=== PATIENT | male | born 1980 | race Two or more races ===

== ENCOUNTER 2024-05-15 00:57 | Inpatient (IN) | payer OTHER ==
[~2024-05-15] VITALS: Ht 162.6 cm; Wt 77.1 kg
[2024-05-15] MEDS ORDERED: LANTUS SOL100 UNIT/1 (01:14)
--- NOTE | 2024-05-15 01:14 | NUR ---
PACIENTE TRAIDA EN AMBULANCIA TRANSFER DEL [facility] POR FX. DE CADERA IZQUIERDA ACEPTADO POR EL DR. LOYOLA Y DR. SANDERS.
--- NOTE | 2024-05-15 01:14 | NUR ---
CANALIZADA EN EDWIN COSTADO # 18 BAJANDO CON UN [id number] KVO
[2024-05-15] MEDS ORDERED: 0.9 % SODIUM CHLORIDE 1,000 ML IV STA (01:50)
[2024-05-15] MEDS ORDERED: PROMETHAZINE HCL 50 MG/ML AMPUL IM STA (01:51)
[2024-05-15] MEDS ORDERED: MEPERIDINE HCL/PF 50 MG/ML VIAL IM STA (01:51)
[2024-05-15 02:00] LABS: HEMATOCRIT 28.3 % (39.0-48.0); HEMOGLOBIN 10.4 g/dL (13-16.00); MEAN CELL VOLUME 82.6 fL (80.0-100.00); MEAN CORPUSCULAR HEMOGLOBIN 30.3 pg (27.00-32.0); MEAN CORPUSCULAR HGB CONC 36.7 g/dl (32.0-36.0); PLATELET COUNT 162 K/uL (150-450); RED BLOOD COUNT 3.43 M/uL (4.00-6.00); RED CELL DISTRIBUTION WIDTH 12.9 % (11.5-14.5)
--- NOTE | 2024-05-15 02:03 | NUR ---
SE ORIENTA A PACIENTE SOBRE ORDENES MEDICAS, REFIERE ENTENDER. SE COLECTAN MUESTRAS DE LABORATORIO BAJO MEDIDAS ASEPTICAS. SE ADMINISTRAN MEDICAMENTOS SONNY ORDEN MEDICA. SE REALIZA EKG Y SE NOTIFICA X-RAY.
[2024-05-15 02:24] LABS: PARTIAL THROMBOPLASTIN TIME 26.7 SECONDS (22.0-34.0); PROTHROMBIN TIME 10.9 SECONDS (9.0-11.5)
[2024-05-15 02:28] LABS: ALBUMIN 3.4 gm/dL (3.4-5.0); BILIRUBIN TOTAL 0.79 mg/dL (0.3-1.2); CALCIUM 8.4 mg/dL (8.5-10.1); CREATININE SERUM 1.22 mg/dL (0.70-1.30); GFR 65.14; GLOBULINA 3.1 G/DL (2.4-3.5); POTASSIUM 3.94 mEq/L (3.5-5.1); TOTAL PROTEIN 6.5 gm/dL (6.4-8.2)
--- NOTE | 2024-05-15 03:02 | NUR ---
SE COLOCA MCDOWELL CATETHER A PACIENTE BAJO MEDIDAS ESTERIL SE LORRIE U/A.
[2024-05-15 03:39] LABS: URINE APPEARANCE Clear; URINE BACTERIA 7.5 uL (0.0-1933); URINE BILIRRUBIN Negative (NEGATIVE); URINE BLOOD Negative; URINE COLOR Yellow; URINE KETONE Negative (NEGATIVE); URINE LEUKOCYTE Negative; URINE NITRATE Negative; URINE RBC 11.5 uL (0.0-20.8); URINE WBC 4.7 uL (0.0-23.2)
[2024-05-15 04:11] LABS: URINE CAST 0.15 uL (0.0-1.40); URINE EPITHELIAL CELLS 0.3 uL (0.0-38.8); URINE GLUCOSE >=1000 MG/DL (NEGATIVE); URINE PROTEIN 100 (NEGATIVE)
[2024-05-15] MEDS ORDERED: INSULIN LISPRO 1,000 UNIT/10 ML UNITS SUBCUTANEO PRN (07:30)
[2024-05-15] MEDS ORDERED: 0.9 % SODIUM CHLORIDE 1,000 ML IV SCH (07:30)
[2024-05-15] MEDS ORDERED: ONDANSETRON HCL 4 MG in 0.9 % SODIUM CHLORIDE 50 ML IV PRN (07:30)
[2024-05-15] MEDS ORDERED: MORPHINE SULFATE 4 MG/ML CARTRIDGE IV PRN (07:30)
[2024-05-15] MEDS ORDERED: DEXTROSE 50 % IN WATER 0.5 G/ML DISP.SYRIN IV PRN (07:30)
[2024-05-15] MEDS ORDERED: ACETAMINOPHEN 500 MG GEL..CAP PO PRN (07:30)
[2024-05-15 07:48] VITALS: BP 136/82
[2024-05-15 08:40] VITALS: BP 132/78; O2SAT 99
[2024-05-15] MEDS ORDERED: FAMOTIDINE/PF 20 MG in 0.9 % SODIUM CHLORIDE 8 ML IV PUSH SCH (09:00)
[2024-05-15 09:10] LABS: COL EPI 138 SECONDS (82-175)
[2024-05-15 16:59] VITALS: BP 178/91; O2SAT 100
[2024-05-16 00:57] VITALS: BP 157/83; O2SAT 99
[2024-05-16 08:00] VITALS: BP 135/76; O2SAT 98
[2024-05-16] MEDS ORDERED: ENOXAPARIN SODIUM 40 MG/0.4 ML SYRINGE SUBCUTANEO NR (13:45)
[2024-05-16 16:00] VITALS: BP 148/84; O2SAT 99
[2024-05-17 00:06] VITALS: BP 143/77; O2SAT 98
[2024-05-17 00:21] LABS: HEMATOCRIT 27.4 % (39.0-48.0); MEAN CELL VOLUME 83.6 fL (80.0-100.00); MEAN CORPUSCULAR HEMOGLOBIN 30.5 pg (27.00-32.0); MEAN CORPUSCULAR HGB CONC 36.5 g/dl (32.0-36.0); PLATELET COUNT 160 K/uL (150-450); RED BLOOD COUNT 3.28 M/uL (4.00-6.00); RED CELL DISTRIBUTION WIDTH 12.8 % (11.5-14.5)
[2024-05-17 01:05] LABS: CALCIUM 8.5 mg/dL (8.5-10.1); CREATININE SERUM 1.35 mg/dL (0.70-1.30); GFR 57.96; POTASSIUM 4.41 mEq/L (3.5-5.1); TSH 0.465 uIU/mL (0.358-3.74)
[2024-05-17 07:43] LABS: HEMATOCRIT 28.6 % (39.0-48.0); HEMOGLOBIN 10.5 g/dL (13-16.00); MEAN CELL VOLUME 82.8 fL (80.0-100.00); MEAN CORPUSCULAR HEMOGLOBIN 30.3 pg (27.00-32.0); MEAN CORPUSCULAR HGB CONC 36.6 g/dl (32.0-36.0); PLATELET COUNT 154 K/uL (150-450); RED BLOOD COUNT 3.46 M/uL (4.00-6.00)
[2024-05-17 08:00] VITALS: BP 147/87; O2SAT 98
[2024-05-17 08:19] LABS: CALCIUM 8.5 mg/dL (8.5-10.1); CREATININE SERUM 1.15 mg/dL (0.70-1.30); GFR 69.74; POTASSIUM 4.2 mEq/L (3.5-5.1)
[2024-05-17] MEDS ORDERED: ENOXAPARIN SODIUM 40 MG/0.4 ML SYRINGE SUBCUTANEO SCH (09:00)
[2024-05-17 16:00] VITALS: BP 147/81; O2SAT 98
[2024-05-17] MEDS ORDERED: INSULIN GLARGINE,HUM.REC.ANLOG 1,000 UNITS/10 ML UNITS SUBCUTANEO SCH (21:00)
[2024-05-18] VITALS: BP 157/74; O2SAT 100
[2024-05-18 07:02] LABS: HEMATOCRIT 27.8 % (39.0-48.0); HEMOGLOBIN 10.2 g/dL (13-16.00); MEAN CELL VOLUME 82.9 fL (80.0-100.00); MEAN CORPUSCULAR HEMOGLOBIN 30.5 pg (27.00-32.0); MEAN CORPUSCULAR HGB CONC 36.8 g/dl (32.0-36.0); PLATELET COUNT 157 K/uL (150-450); RED BLOOD COUNT 3.36 M/uL (4.00-6.00); RED CELL DISTRIBUTION WIDTH 12.7 % (11.5-14.5)
[2024-05-18] MEDS ORDERED: CEFAZOLIN SODIUM 1,000 MG VIAL IV SCH ×2 (08:00→17:00)
[2024-05-18] MEDS ORDERED: VANCOMYCIN HCL 1,000 MG VIAL IR ONE (12:45)
[2024-05-18] MEDS ORDERED: TRANEXAMIC ACID 100MG/1ML (1000MG) AMPUL IV ONE ×2 (12:45)
[2024-05-18] MEDS ORDERED: TRAMADOL HCL 50 MG TABLET PO PRN (15:30)
[2024-05-18] MEDS ORDERED: MEPERIDINE HCL/PF 50 MG/ML VIAL IM PRN (15:30)
[2024-05-18] MEDS ORDERED: ONDANSETRON HCL 2 MG/ML VIAL IV PRN (15:30)
[2024-05-18] MEDS ORDERED: PROMETHAZINE HCL 50 MG/ML AMPUL IM PRN (15:30)
[2024-05-18] MEDS ORDERED: SODIUM CHLORIDE 0.45 % 1,000 ML IV SCH (15:30)
[2024-05-18] MEDS ORDERED: ONDANSETRON 4 MG TAB.RAPDIS PO PRN (15:30)
[2024-05-18] MEDS ORDERED: MORPHINE SULFATE 4 MG/ML VIAL IV ONE ×2 (15:45→16:15)
[2024-05-18] MEDS ORDERED: ENALAPRILAT DIHYDRATE 1.25 MG/ML VIAL IV ONE (16:45)
[2024-05-18] MEDS ORDERED: PROMETHAZINE HCL 50 MG/ML AMPUL IM ONE (16:45)
[2024-05-18] MEDS ORDERED: MEPERIDINE HCL 50 MG/ML AMPUL IM ONE (16:45)
[2024-05-18] MEDS ORDERED: PANTOPRAZOLE SODIUM 40 MG TABLET.DR PO SCH (17:00)
[2024-05-18 17:34] VITALS: BP 158/69; O2SAT 97
[2024-05-18 17:53] LABS: HEMATOCRIT 26.3 % (39.0-48.0); HEMOGLOBIN 9.5 g/dL (13-16.00); MEAN CELL VOLUME 83.3 fL (80.0-100.00); PLATELET COUNT 153 K/uL (150-450); RED BLOOD COUNT 3.16 M/uL (4.00-6.00); RED CELL DISTRIBUTION WIDTH 12.9 % (11.5-14.5)
[2024-05-19] VITALS: BP 162/84; O2SAT 100
[2024-05-19 08:22] LABS: HEMATOCRIT 24.1 % (39.0-48.0); MEAN CELL VOLUME 83.8 fL (80.0-100.00); MEAN CORPUSCULAR HGB CONC 35.1 g/dl (32.0-36.0); PLATELET COUNT 160 K/uL (150-450); RED BLOOD COUNT 2.88 M/uL (4.00-6.00); RED CELL DISTRIBUTION WIDTH 12.6 % (11.5-14.5)
[2024-05-19 08:24] LABS: HEMOGLOBIN 8.5 g/dL (13-16.00); MEAN CORPUSCULAR HEMOGLOBIN 29.5 pg (27.00-32.0)
[2024-05-19] MEDS ORDERED: RIVAROXABAN 10 MG TAB PO SCH (09:00)
[2024-05-19 10:04] VITALS: BP 114/72; O2SAT 100
[2024-05-19 17:00] VITALS: BP 177/77; O2SAT 100
[2024-05-20] VITALS: BP 110/69; O2SAT 95
[2024-05-20 01:09] LABS: MEAN CELL VOLUME 83.5 fL (80.0-100.00); MEAN CORPUSCULAR HGB CONC 35.8 g/dl (32.0-36.0); PLATELET COUNT 147 K/uL (150-450); RED BLOOD COUNT 2.53 M/uL (4.00-6.00); RED CELL DISTRIBUTION WIDTH 12.9 % (11.5-14.5)
[2024-05-20 01:11] LABS: HEMATOCRIT 21.1 % (39.0-48.0); HEMOGLOBIN 7.6 g/dL (13-16.00)
[2024-05-20 08:24] VITALS: BP 189/84; O2SAT 98
[2024-05-20] MEDS ORDERED: SENNA/DOCUSATE SODIUM 1 TAB TABLET PO SCH (09:00)
[2024-05-20 16:35] VITALS: BP 160/84; O2SAT 98
[2024-05-20 18:08] LABS: HEMATOCRIT 24.7 % (39.0-48.0); HEMOGLOBIN 9.1 g/dL (13-16.00); MEAN CELL VOLUME 82.6 fL (80.0-100.00); MEAN CORPUSCULAR HEMOGLOBIN 30.3 pg (27.00-32.0); MEAN CORPUSCULAR HGB CONC 36.7 g/dl (32.0-36.0); PLATELET COUNT 170 K/uL (150-450); RED BLOOD COUNT 2.99 M/uL (4.00-6.00); RED CELL DISTRIBUTION WIDTH 12.7 % (11.5-14.5)
[2024-05-21 00:39] VITALS: BP 123/79; O2SAT 99
[2024-05-21 06:45] LABS: MEAN CELL VOLUME 84.2 fL (80.0-100.00); MEAN CORPUSCULAR HGB CONC 36.3 g/dl (32.0-36.0); PLATELET COUNT 146 K/uL (150-450); RED BLOOD COUNT 2.73 M/uL (4.00-6.00); RED CELL DISTRIBUTION WIDTH 12.5 % (11.5-14.5)
[2024-05-21 07:20] LABS: MEAN CORPUSCULAR HEMOGLOBIN 30.7 pg (27.00-32.0)
[2024-05-21 07:21] LABS: HEMOGLOBIN 8.4 g/dL (13-16.00)
[2024-05-21 08:00] VITALS: BP 167/85; O2SAT 100
[2024-05-21 17:00] VITALS: BP 155/88; O2SAT 97
[2024-05-22 00:53] VITALS: BP 114/71; O2SAT 97
[2024-05-22 08:12] LABS: MEAN CELL VOLUME 83.1 fL (80.0-100.00); MEAN CORPUSCULAR HEMOGLOBIN 30.5 pg (27.00-32.0); MEAN CORPUSCULAR HGB CONC 36.7 g/dl (32.0-36.0); PLATELET COUNT 176 K/uL (150-450); RED BLOOD COUNT 2.68 M/uL (4.00-6.00); RED CELL DISTRIBUTION WIDTH 12.8 % (11.5-14.5)
[2024-05-22 08:13] LABS: HEMATOCRIT 22.2 % (39.0-48.0); HEMOGLOBIN 8.2 g/dL (13-16.00)
[2024-05-22 08:14] LABS: ALBUMIN 2.5 gm/dL (3.4-5.0); BILIRUBIN TOTAL 0.47 mg/dL (0.3-1.2); CALCIUM 8.3 mg/dL (8.5-10.1); CREATININE SERUM 1.19 mg/dL (0.70-1.30); GFR 67.04; GLOBULINA 3.2 G/DL (2.4-3.5); POTASSIUM 4.09 mEq/L (3.5-5.1); TOTAL PROTEIN 5.7 gm/dL (6.4-8.2)
[2024-05-22 08:30] VITALS: BP 160/80; O2SAT 99
[2024-05-22] MEDS ORDERED: INSULIN GLARGINE,HUM.REC.ANLOG 1,000 UNITS/10 ML UNITS SUBCUTANEO SCH (09:00)
[2024-05-22 16:00] VITALS: BP 151/85; O2SAT 96
[2024-05-23 01:06] VITALS: BP 139/63; O2SAT 99
[2024-05-23 08:00] VITALS: BP 171/86; O2SAT 97
[2024-05-23 12:40] LABS: HEMATOCRIT 34.8 % (39.0-48.0); HEMOGLOBIN 12.2 g/dL (13-16.00); MEAN CELL VOLUME 84.3 fL (80.0-100.00); MEAN CORPUSCULAR HEMOGLOBIN 29.6 pg (27.00-32.0); MEAN CORPUSCULAR HGB CONC 35.1 g/dl (32.0-36.0); PLATELET COUNT 277 K/uL (150-450); RED BLOOD COUNT 4.13 M/uL (4.00-6.00); RED CELL DISTRIBUTION WIDTH 13.1 % (11.5-14.5)
[2024-05-23 16:56] VITALS: BP 161/79; O2SAT 100
[2024-05-24 00:57] VITALS: BP 158/69; O2SAT 98
[2024-05-24 08:58] VITALS: BP 128/76; O2SAT 98
[2024-05-24] MEDS ORDERED: INSULIN GLARGINE,HUM.REC.ANLOG 1,000 UNITS/10 ML UNITS SUBCUTANEO SCH ×2 (09:00)
[2024-05-24 09:02] LABS: HEMATOCRIT 30.8 % (39.0-48.0); HEMOGLOBIN 10.6 g/dL (13-16.00); RED BLOOD COUNT 3.61 M/uL (4.00-6.00)
[2024-05-24 16:00] VITALS: BP 160/82; O2SAT 98
[2024-05-25 01:33] VITALS: BP 142/85; O2SAT 99
[2024-05-25 02:34] LABS: ob NEGATIVE (NEGATIVE)
[2024-05-25 08:30] VITALS: BP 162/80; O2SAT 99
[2024-05-25] MEDS ORDERED: INSULIN GLARGINE,HUM.REC.ANLOG 1,000 UNITS/10 ML UNITS SUBCUTANEO SCH (09:00)
[2024-05-25 09:53] LABS: HEMATOCRIT 30.3 % (39.0-48.0); HEMOGLOBIN 10.6 g/dL (13-16.00); RED BLOOD COUNT 3.58 M/uL (4.00-6.00)
[2024-05-25 11:05] LABS: ALBUMIN 2.7 gm/dL (3.4-5.0); BILIRUBIN TOTAL 0.52 mg/dL (0.3-1.2); BILIRUBIN,CONJUGATED 0.17 mg/dL (0.0-0.2); BILIRUBIN,UNCONJUGATED 0.35 mg/dL (0.0-0.6); TOTAL PROTEIN 6.3 gm/dL (6.4-8.2)
[2024-05-25 11:24] LABS: CALCIUM 8.6 mg/dL (8.5-10.1); CREATININE SERUM 1.11 mg/dL (0.70-1.30); GFR 72.65; POTASSIUM 4.43 mEq/L (3.5-5.1)
[2024-05-25 13:09] LABS: INR 0.98; PARTIAL THROMBOPLASTIN TIME 29.6 SECONDS (22.0-34.0); PROTHROMBIN TIME 10.7 SECONDS (9.0-11.5)
[2024-05-25 16:00] VITALS: BP 126/90; O2SAT 99
[2024-05-25 22:05] LABS: HEMATOCRIT 28.1 % (39.0-48.0); HEMOGLOBIN 10.2 g/dL (13-16.00); RED BLOOD COUNT 3.39 M/uL (4.00-6.00)
[2024-05-26 02:37] VITALS: BP 137/83; O2SAT 99
[2024-05-26 08:18] VITALS: BP 152/93; O2SAT 98
[2024-05-26] MEDS ORDERED: LISINOPRIL 10 MG TABLET PO SCH (09:00)
[2024-05-26 09:38] LABS: HEMATOCRIT 29.5 % (39.0-48.0); HEMOGLOBIN 10.6 g/dL (13-16.00); RED BLOOD COUNT 3.49 M/uL (4.00-6.00)
== END 2024-05-26 14:38 | disposition home or self-care (01) | DRG 481 ==
LOC: ER 00:57 → SURH 08:35
PROVIDERS: General Practice; Internal Medicine; Internal Medicine Endocrinology, Diabetes & Metabolism; Orthopaedic Surgery; Student in an Organized Health Care Education/Training Program; ADMIT Internal Medicine; ATTEND Internal Medicine
PROC: 0QSC06Z Reposition Left Lower Femur with Intramedullary Internal Fixation Device, Open Approach (ICD-10-PCS; principal; 2024-05-18 07:00)
PROC: 30233N1 Transfusion of Nonautologous Red Blood Cells into Peripheral Vein, Percutaneous Approach (ICD-10-PCS; 2024-05-20)
PROC: BW21ZZZ Computerized Tomography (CT Scan) of Abdomen and Pelvis (ICD-10-PCS; 2024-05-25)
DX: S72.002A Fracture of unspecified part of neck of left femur, initial encounter for closed fracture (principal); D62 Acute posthemorrhagic anemia; S72.102A Unspecified trochanteric fracture of left femur, initial encounter for closed fracture; E11.9 Type 2 diabetes mellitus without complications; Z79.4 Long term (current) use of insulin; I25.10 Atherosclerotic heart disease of native coronary artery without angina pectoris; N18.9 Chronic kidney disease, unspecified

== ENCOUNTER 2024-06-09 09:21 | Outpatient (CLI) | payer OTHER ==
[~2024-06-09 09:21] MED LIST: LANTUS SOL100 UNIT/1
== END 2024-06-09 09:26 | disposition home or self-care (01) ==
LOC: RAD 09:21
PROVIDERS: ATTEND Orthopaedic Surgery
DX: S72.22XD Displaced subtrochanteric fracture of left femur, subsequent encounter for closed fracture with routine healing (principal)

== ENCOUNTER 2024-08-19 11:00 | Outpatient (CLI) | payer OTHER | END 2024-08-19 11:03 | disposition home or self-care (01) | LOC: RAD 11:00 | PROVIDERS: ATTEND Orthopaedic Surgery | DX: S72.22XD Displaced subtrochanteric fracture of left femur, subsequent encounter for closed fracture with routine healing (principal); X58.XXXD Exposure to other specified factors, subsequent encounter ==

== ENCOUNTER 2024-10-19 13:33 | Outpatient (CLI) | payer OTHER | END 2024-10-19 13:42 | disposition home or self-care (01) | LOC: RAD 13:33 | PROVIDERS: ATTEND Orthopaedic Surgery | DX: M25.552 Pain in left hip (principal) ==

== ENCOUNTER 2024-10-25 07:50 | Outpatient (CLI) | payer OTHER ==
[2024-10-25 08:38] LABS: HEMATOCRIT 31.4 % (39.0-48.0); HEMOGLOBIN 11.1 g/dL (13-16.00); MEAN CELL VOLUME 80.3 fL (80.0-100.00); MEAN CORPUSCULAR HEMOGLOBIN 28.5 pg (27.00-32.0); MEAN CORPUSCULAR HGB CONC 35.5 g/dl (32.0-36.0); PLATELET COUNT 226 K/uL (150-450); RED BLOOD COUNT 3.91 M/uL (4.00-6.00); RED CELL DISTRIBUTION WIDTH 12.3 % (11.5-14.5)
[2024-10-25 08:50] LABS: ERYTHROCYTE SEDIMENTATION RATE 48 mm/hr
[2024-10-25 09:09] LABS: ALBUMIN 3.5 gm/dL (3.4-5.0); ALKALINE PHOSPHATASE 423 U/L (50-136); ALT/SGPT 17 U/L (12-78); ANION GAP 10 (10.0-20.0); AST/SGOT 11 U/L (15-37); BILIRUBIN TOTAL 0.45 mg/dL (0.3-1.2); BLOOD UREA NITROGEN 22 mg/dL (7-18); BUN CREA RATIO 17 (7.0-25.0); CALCIUM 9.2 mg/dL (8.5-10.1); CARBON DIOXIDE 29 mEq/L (21-32); CHLORIDE 99 mmol/L (98-107); CREATININE SERUM 1.31 mg/dL (0.70-1.30); D DIMER 0.82 MG/L; FIBRINOGEN 402 mg/dL (187.0-446.0); GLOBULINA 3.8 G/DL (2.4-3.5); INR < 0.93; PARTIAL THROMBOPLASTIN TIME 25.4 SECONDS (22.0-34.0); POTASSIUM 4.56 mEq/L (3.5-5.1); PROTHROMBIN TIME 10.1 SECONDS (9.0-11.5); SODIUM 133 mmol/L (136-145); TOTAL PROTEIN 7.3 gm/dL (6.4-8.2)
[2024-10-25 09:23] LABS: C-REACTIVE PROTEIN < 0.29 MG/DL (0.00-0.29); OSMOLALITY SERUM 286 MOSM/KG (275-295)
[2024-10-25 09:24] LABS: GLUCOSE FASTING 390 mg/dL (65-100)
[2024-10-25 09:36] LABS: URINE APPEARANCE Clear; URINE BILIRRUBIN Negative (NEGATIVE); URINE BLOOD Small; URINE COLOR Yellow; URINE KETONE Trace (NEGATIVE); URINE LEUKOCYTE Negative; URINE NITRATE Negative; URINE PROTEIN 30 (NEGATIVE); URINE UROBILINOGEN 0.2 E.U./dl
[2024-10-25 09:37] LABS: URINE BACTERIA 6.1 uL (0.0-1933); URINE RBC 43.5 uL (0.0-20.8)
[2024-10-25 09:47] LABS: COL EPI 84 SECONDS (82-175)
[2024-10-25 10:07] LABS: URINE GLUCOSE >=1000 MG/DL (NEGATIVE); URINE WBC 0.6 uL (0.0-23.2)
== END 2024-10-25 07:57 | disposition home or self-care (01) ==
LOC: RAD 07:50
PROVIDERS: ATTEND Orthopaedic Surgery
DX: D64.9 Anemia, unspecified (principal); E88.89 Other specified metabolic disorders; D68.8 Other specified coagulation defects; N39.0 Urinary tract infection, site not specified; Z22.322 Carrier or suspected carrier of Methicillin resistant Staphylococcus aureus; E11.9 Type 2 diabetes mellitus without complications; M06.4 Inflammatory polyarthropathy; Z76.89 Persons encountering health services in other specified circumstances; I10 Essential (primary) hypertension